=== PATIENT | female | born 1990 | race American Indian/Alaskan Native ===

== ENCOUNTER 2020-08-19 16:09 | Observation (INO) | payer SELFPAY ==
--- NOTE | 2020-08-19 16:14 | Event Note ---
ED Screening Note Date of service: 08/19/20 Time: 16:13 ED Screening Note: c/o sudden onset of chest tightness and SOB x 10 minutes denies hx of anxiety pt very anxious This initial assessment/diagnostic orders/clinical plan/treatment(s) is/are subject to change based on patients health status, clinical progression and re- assessment by fellow clinical providers in the ED. Further treatment and workup at subsequent clinical providers discretion. Patient/guardian urged not to elope from the ED as their condition may be serious if not clinically assessed and managed. Initial orders include: cxr ekg labs
[2020-08-19 16:40] LABS: Basophils # (Auto) 0.1 K/mm3 (0.0-0.1); Eosinophils % (Auto) 0.3 % (0.0-4.3); Hematocrit 35.3 % (30.3-42.9); Lymphocytes # (Auto) 1.6 K/mm3 (1.2-5.4); Lymphocytes % (Auto) 19.5 % (13.4-35.0); Mean Corpuscular HGB Conc 34 % (30-34); Mean Corpuscular Volume 97 fl (79-97); Monocytes # (Auto) 0.9 K/mm3 (0.0-0.8); Monocytes % (Auto) 10.6 % (0.0-7.3); Platelet Count 410 K/mm3 (140-440); Red Blood Count 3.66 M/mm3 (3.65-5.03); Red Cell Distribution Width 14.4 % (13.2-15.2)
[2020-08-19 17:01] LABS: Alanine Aminotransferase 26 units/L (7-56); Albumin 4.7 g/dL (3.9-5); Blood Urea Nitrogen 8 mg/dL (7-17); Calcium 10.1 mg/dL (8.4-10.2); Hemolysis Index 17
[2020-08-19 17:02] LABS: BUN/Creatinine Ratio 16
--- NOTE | 2020-08-19 17:38 | XRay Report ---
CHEST 2 VIEWS INDICATION / CLINICAL INFORMATION: shortness of breath. COMPARISON: None available. FINDINGS: SUPPORT DEVICES: None. HEART / MEDIASTINUM: No significant abnormality. LUNGS / PLEURA: No significant pulmonary or pleural abnormality. No pneumothorax. ADDITIONAL FINDINGS: No significant additional findings. IMPRESSION: No significant abnormality Signer Name: Miguel Moon MD FACR Signed: 08/19/2020 5:33 PM Workstation Name: [id number]
--- NOTE | 2020-08-20 06:28 | Emergency Department Report ---
ED Chest Pain HPI - General Chief Complaint: Chest Pain Stated Complaint: ALLERGIC REACTION Time Seen by Provider: 08/19/20 16:11 Source: patient Mode of arrival: Ambulatory Limitations: No Limitations - History of Present Illness Initial Comments: This is a 29-year-old lady whose chief complaint is chest pain. She was concerned when she had palpitations yesterday and shortness of breath. Her initial measured blood pressure was elevated but subsequent blood pressures were normal. She states that 2 days ago she experienced some difficulty in breathing. It sounded like she might have experienced hyperventilation. This was followed by a syncopal episode and trauma to her forehead. Sometime after she awoke soon after her fall she was experiencing a sensory change of her left arm. This was 2 days ago. It is persistent. She is somewhat vague about weakness stating to me that her arm is not weak but again she appears to be ambiguous about. She is experienced no difficulty walking speaking or with her vision. She states that yesterday she experienced chest pain which was nonpleuritic and central in nature. It did not radiate to the left arm. She did have some palpitations and some shortness of breath again. Patient states that she has never had symptoms like this before. She does not take control pill. MD Complaint: chest pain -: Gradual, days(s) Onset: during rest Pain Location: substernal Pain Radiation: none Quality: aching Consistency: now resolved Improves With: nothing Worsens With: nothing re: dyspnea, other (Palpitation). denies: nausea, vomting, diaphoresis Other Symptoms: denies: cough, fever, syncope Treatments Prior to Arrival: none Aspirin use within the Past 7 Days: (0) No - Related Data Allergies Allergy/AdvReac Type Severity Reaction Status Date / Time No Known Allergies Allergy Unverified 08/19/20 16:14 Heart Score - HEART Score History: Slightly suspicious EKG: Non-specific Age: < 45 Risk factors: No known risk factors Troponin: < normal limit HEART Score: 1 - Critical Actions Critical Actions: 0-3 pts:0.9-1.7%risk of adverse cardiac event.Candidate for discharge ED Review of Systems ROS: Stated complaint: ALLERGIC REACTION Other details as noted in HPI Constitutional: denies: chills, fever Eyes: denies: eye pain, eye discharge, vision change ENT: denies: ear pain, throat pain Respiratory: shortness of breath. denies: cough, wheezing Cardiovascular: denies: chest pain, palpitations Endocrine: no symptoms reported Gastrointestinal: denies: abdominal pain, nausea, diarrhea Genitourinary: denies: urgency, dysuria, discharge Musculoskeletal: denies: back pain, joint swelling, arthralgia Skin: denies: rash, lesions Neurological: as per HPI, numbness. denies: headache, weakness, paresthesias Psychiatric: denies: anxiety, depression Hematological/Lymphatic: denies: easy bleeding, easy bruising ED Past Medical Hx - Past Medical History Previous Medical History?: No - Surgical History Past Surgical History?: No - Social History Smoking Status: Never Smoker ED Physical Exam - General Limitations: No Limitations General appearance: alert, in no apparent distress - Head Head exam: Present: normocephalic, other (Forehead abrasion) - Eye Eye exam: Present: normal appearance. Absent: scleral icterus - ENT ENT exam: Present: mucous membranes moist - Neck Neck exam: Present: normal inspection - Respiratory Respiratory exam: Present: normal lung sounds bilaterally. Absent: respiratory distress - Cardiovascular Cardiovascular Exam: Present: regular rate, normal rhythm. Absent: systolic murmur, diastolic murmur, rubs, gallop - GI/Abdominal GI/Abdominal exam: Present: soft, normal bowel sounds. Absent: distended, tenderness, guarding, rebound - Extremities Exam Extremities exam: Present: normal inspection - Back Exam Back exam: Present: normal inspection - Neurological Exam Neurological exam: Present: alert, oriented X3, CN II-XII intact, motor sensory deficit (Patient states that she has a difference in fine touch testing left arm compared with right. Her NIH stroke score is 1.) - Psychiatric Psychiatric exam: Present: normal affect, normal mood - Skin Skin exam: Present: warm, dry, intact, normal color. Absent: rash ED Course Vital Signs 08/19/20 08/20/20 08/20/20 16:13 05:59 06:01 Temperature 98.4 F Pulse Rate 122 H 84 89 Respiratory 18 16 16 Rate Blood Pressure 173/113 Blood Pressure 143/99 [Right] O2 Sat by Pulse 100 100 Oximetry 08/20/20 08/20/20 09:22 11:32 Temperature Pulse Rate 88 95 H Respiratory 18 17 Rate Blood Pressure Blood Pressure 117/81 126/82 [Right] O2 Sat by Pulse 100 100 Oximetry - Reevaluation(s) Reevaluation #1: CT the patient's head was negative. Her EKG showed nonspecific changes. Her persistent numbness was of concern as well as her syncopal episode. I have added a coagulation profile and obtain serial troponin. The patient is already admitted to the hospitalist service for further care and evaluation. 08/20/20 12:02 ED Medical Decision Making - Lab Data Result diagrams: 08/19/20 16:25 08/19/20 16:25 Laboratory Results - last 24 hr 08/19/20 08/19/20 08/19/20 16:25 16:25 16:25 WBC 8.0 RBC 3.66 Hgb 12.0 Hct 35.3 MCV 97 MCH 33 H MCHC 34 RDW 14.4 Plt Count 410 Lymph % (Auto) 19.5 [place] % (Auto) 10.6 H Eos % (Auto) 0.3 Baso % (Auto) 1.0 Lymph # (Auto) 1.6 [place] # (Auto) 0.9 H Eos # (Auto) 0.0 Baso # (Auto) 0.1 Seg Neutrophils % 68.6 Seg Neutrophils # 5.5 Sodium 134 L Potassium 3.8 Chloride 98.6 Carbon Dioxide 20 L Anion Gap 19 BUN 8 Creatinine 0.5 L Estimated GFR > 60 BUN/Creatinine Ratio 16 Glucose 144 H Calcium 10.1 Total Bilirubin 0.90 AST 41 H ALT 26 Alkaline Phosphatase 47 Troponin T < 0.010 Total Protein 7.9 Albumin 4.7 Albumin/Globulin Ratio 1.5 HCG, Qual Negative - EKG Data -: EKG Interpreted by Al EKG shows normal: sinus rhythm, axis, intervals, QRS complexes Rate: normal - EKG Data Interpretation: nonspecific ST-T wave adriana - Radiology Data Radiology results: report reviewed, image reviewed (Chest x-ray no acute process, CT head no acute process no significant findings) Critical care attestation.: If time is entered above; I have spent that time in minutes in the direct care of this critically ill patient, excluding procedure time. ED Disposition Clinical Impression: Left arm weakness, Palpitations, Left arm numbness Chest pain Qualifiers: Chest pain type: unspecified Qualified Code(s): R07.9 - Chest pain, unspecified Syncope Qualifiers: Syncope type: unspecified Qualified Code(s): R55 - Syncope and collapse Disposition: DC-09 OP ADMIT IP TO THIS HOSP Is pt being admited?: Yes Does the pt Need Aspirin: Yes Condition: Stable Instructions: Chest Pain (ED), Syncope (ED) Referrals: PRIMARY CARE, [Primary Care Provider] - 3-5 Days Time of Disposition: 12:02
--- NOTE | 2020-08-20 09:01 | Cat Scan Report ---
CT BRAIN: 08/20/2020 INDICATION / CLINICAL INFORMATION: syncope l arm numbness. COMPARISON: None available. FINDINGS: BRAIN/INTRACRANIAL STRUCTURES: Unenhanced CT images of the brain demonstrate no evidence of acute int racranial abnormality. Ventricles and sulci are within normal limits of size and shape for a patient of this age. There is no evidence of ischemic injury, hemorrhage, or mass. There are no abnormal extra-axial fluid collections. Incidental note is made of some soft tissue densities within the external auditory canals bilaterally , right greater than left, most likely cerumen. EXTRACRANIAL STRUCTURES: Unremarkable. IMPRESSION: Negative unenhanced CT of the brain. All CT scans at this location are performed using dose reduction to ALARA by means of automated expos ure control. Signer Name: Anjum Jackson MD Signed: 08/20/2020 8:57 AM Workstation Name: [id number]
[2020-08-20] MEDS ORDERED: ASPIRIN 325 MG TAB PO ONE (12:03)
[2020-08-20 13:11] LABS: INR 0.92 (0.87-1.13)
[2020-08-20 13:12] LABS: Partial Thromboplastin Time 27.6 Sec. (24.2-36.6)
[2020-08-20 13:21] VITALS: BP 121/75
[2020-08-20] MEDS ORDERED: HYDROmorphone 1 MG/1 ML INJ IV PRN (20:07)
[2020-08-20] MEDS ORDERED: ONDANSETRON 4 MG/2 ML INJ IV PRN (20:07)
[2020-08-20] MEDS ORDERED: METOCLOPRAMIDE 10 MG/2 ML INJ IV PRN (20:07)
[2020-08-20] MEDS ORDERED: oxyCODONE /ACETAMINOPHEN 5-325MG TAB PO PRN (20:07)
[2020-08-20] MEDS ORDERED: ACETAMINOPHEN 325 MG TAB PO PRN (20:07)
[2020-08-20] MEDS ORDERED: diphenhydrAMINE 50 MG/ML VIAL IV PRN (20:09)
[2020-08-20] MEDS ORDERED: FAMOTIDINE 20 MG TAB PO SCH (22:00)
--- NOTE | 2020-08-22 11:08 | Event Note ---
Date: 08/22/20 I have admitted the patient on 08/20/2020 for chest pain and nonspecific weakness and numbness of the left arm which I could not identify on my physical examination. H&P was done, order was placed for some reason her account number was changed and does not show on this note. Nevertheless patient left AMA on the same day at night.
== END 2020-08-20 21:30 | disposition left against medical advice (07) ==
LOC: ED 16:09 → 4A 08-20 12:04
PROVIDERS: ADMIT Internal Medicine; ATTEND Internal Medicine
DX: R07.89 Other chest pain (principal); R55 Syncope and collapse; M62.81 Muscle weakness (generalized); R00.2 Palpitations; R20.0 Anesthesia of skin
CPT/HCPCS: 36415; 70450; 71046; 80053; 84484; 84703; 85025; 85379; 85610; 85730; 93005; 99285; G0378

== ENCOUNTER 2020-08-20 03:24 | Emergency (ER) | payer SELFPAY ==
[2020-08-20 03:42] VITALS: BP 150/102
[2020-08-20] MEDS ORDERED: ACETAMINOPHEN 325 MG TAB PO PRN ×2 (09:29→11:33)
[2020-08-20] MEDS ORDERED: ONDANSETRON 4 MG/2 ML INJ IV PRN ×2 (09:29→11:33)
--- NOTE | 2020-08-20 10:44 | Consultation ---
History of Present Illness Consult date: 08/20/20 Requesting physician: MEGAN JEFFREY Consult reason: chest pain, other (palpitations) History of present illness: The pt is a 29 YO female with no known significant past medical history. She is previously unknown to our practice. She presented with c/o intermittent chest pain and palpitations for 1 day prior to arrival and some associated left arm weakness for several hours prior to arrival. She describes her chest pain as a "pounding" and "pinching" left-sided pain which radiates into the left side of her neck. The pain is usually preceded by palpitations and a feeling of anxiety. Pt denies any SOB, n/v, diaphoresis, dizziness or syncope. She denies any known prior cardiac history or cardiac w/u. Past History Past Medical History: No medical history Past Surgical History: No surgical history Social history: denies: smoking Medications and Allergies Allergies Allergy/AdvReac Type Severity Reaction Status Date / Time No Known Allergies Allergy Unverified 08/19/20 16:14 Review of Systems Constitutional: no weight loss, no weight gain, no fever, no chills, no sweats Ears, nose, mouth and throat: no ear pain, no nose pain, no sinus pressure, no sinus pain Cardiovascular: chest pain, palpitations, no orthopnea, no edema, no syncope, no lightheadedness, no shortness of breath, no dyspnea on exertion, no high blood pressure, no leg edema, no decreased exercise tolerance Respiratory: no cough, no shortness of breath, no dyspnea on exertion, no congestion, no wheezing, no pain on inspiration Gastrointestinal: no abdominal pain, no nausea, no vomiting, no diarrhea, no constipation, no change in bowel habits Genitourinary Female: no pelvic pain, no flank pain, no dysuria, no urinary frequency, no urgency Musculoskeletal: muscle weakness (left arm), no neck stiffness, no neck pain, no shooting arm pain, no arm numbness/tingling, no low back pain Integumentary: no rash, no pruritis, no redness, no sores, no wounds Neurological: weakness (left arm), no head injury, no paralysis, no numbness, no tingling, no seizures, no syncope Endocrine: no cold intolerance, no heat intolerance Hematologic/Lymphatic: no easy bruising, no easy bleeding Allergic/Immunologic: no urticaria Physical Examination Vital Signs Temp Pulse Resp BP Pulse Ox 97.7 F 80 18 150/102 100 08/20/20 03:30 08/20/20 03:30 08/20/20 03:30 08/20/20 03:30 08/20/20 03:30 General appearance: no acute distress HEENT: Positive: PERRL, Normocephaly, Mucus Membranes Moist Neck: Positive: neck supple, trachea midline Cardiac: Positive: Reg Rate and Rhythm, S1/S2 Lungs: Positive: Decreased Breath Sounds Neuro: Positive: Grossly Intact Abdomen: Negative: Tender Skin: Negative: Rash Musculoskeletal: No Pain Extremities: Absent: edema Results - Imaging and Cardiology Echo: pending EKG: report reviewed, image reviewed EKG interpretations - Telemetry EKG Rhythm: Sinus Rhythm - EKG Sinus rhythms and dysrhythmias: sinus rhythm Assessment and Plan Chest pain appears atypical. ECG with NSR, no acute findings. No arrhythmias noted on telemetry. Obtain Elva and echo. Cont to monitor on telemetry. Pt with current HEART score of 0 pending Elva are negative. No indication for inpatient ischemic evaluation at this time - can consider as OP if indicated. Further w/u of left arm weakness per primary. Will follow. The patient has been seen in conjunction with Dr. Mazariegos who agrees with the assessment and plan of care. - Patient Problems (1) Left arm weakness Status: Acute (2) Chest pain Status: Acute (3) Palpitations Status: Acute
[2020-08-20 11:08] LABS: Hematocrit 32.3 % (30.3-42.9); Hemoglobin 11.7 gm/dl (10.1-14.3); Mean Corpuscular HGB Conc 36 % (30-34); Mean Corpuscular Volume 95 fl (79-97); Platelet Count 366 K/mm3 (140-440); Red Blood Count 3.39 M/mm3 (3.65-5.03)
[2020-08-20 11:32] LABS: Blood Urea Nitrogen 5 mg/dL (7-17); Calcium 9.2 mg/dL (8.4-10.2); Hemolysis Index 1
[2020-08-20 11:35] LABS: BUN/Creatinine Ratio 10
--- NOTE | 2020-08-20 11:43 | History and Physical Report ---
History of Present Illness Date of examination: 08/20/20 Chief complaint: Chest pain, left-sided numbness History of present illness: 29-year-old -[place] female with no significant past medical history presented to the emergency department with complaints of chest pain, numbness and weakness of the left upper extremity. Patient states she had similar symptoms a month ago and resolved by itself. Patient states she had red bull yesterday and the symptoms started after that. Patient's weakness and numbness is getting better now. Chest pain also resolved. She states the chest pain is feeling of tightness around the left chest radiating to the left side of the neck, 5 out of 10 in intensity, intermittent, no alleviating or aggravating factors identified. In the emergency department labs were unremarkable, vital signs were stable, CT head and chest x-ray was done and unremarkable. Cardiology was consulted and recommend to do troponin which was negative and will check echo. Put a consult for neurology. Patient will be admitted to the floor for observation. REVIEW OF SYSTEMS: GENERAL: no weight change, no fatigue, no fever HEAD: no head ache EYES: no blurry vision, no acute visual loss EARS: no hearing loss, no discharge, no earache NOSE: no stuffiness, no sneezing, no discharge MOUTH, THROAT AND NECK: no bleeding gums, no sore throat, no swollen neck CARDIAC: no palpitations, no dyspnea on exertion, no orthopnea, no PND, no edema, no chest pain RESPIRATORY: no shortness of breath, no wheeze, no cough, no sputum, no hemoptysis, no asthma GI: no decreased appetite, no nausea, no vomiting, no dysphagia, no diarrhea, no constipation, no abdominal pain URINARY: No urgency, hematuria, dysuria or frequency. MUSCULOSKELETAL: no muscle weakness, no pain, no joint stiffness NEUROLOGIC: no loss of sensation/numbness, no tingling, no tremors, no weakness/paralysis HEMATOLOGIC: no anemia, no easy bruising SKIN: no rashes ENDOCRINE: no heat/cold intolerance, no polyuria, no polydipsia, no thyroid problems, no diabetes PSYCHIATRIC: no anxiety, no depression, no suicidal ideations Past History Past Medical History: No medical history Past Surgical History: No surgical history Social history: alcohol abuse (Occasional ), full code. denies: smoking, prescription drug abuse, IV drug use Family history: other (Mother of heart attack at the age of 52) Medications and Allergies Allergies Allergy/AdvReac Type Severity Reaction Status Date / Time No Known Allergies Allergy Unverified 08/19/20 16:14 Active Meds: Active Medications Acetaminophen (Tylenol) 650 mg PO Q4H PRN PRN Reason: Pain MILD(1-3)/Fever >100.5/GAR Docusate Sodium (Colace) 100 mg PO BID ED Ondansetron HCl (Zofran) 4 mg IV Q8H PRN PRN Reason: Nausea And Vomiting Sodium Chloride (Sodium Chloride Flush Syringe 10 Ml) 10 ml IV BID ED Sodium Chloride (Sodium Chloride Flush Syringe 10 Ml) 10 ml IV PRN PRN PRN Reason: LINE FLUSH Exam - Physical Exam Narrative exam: Not in cardiopulmonary distress. The patient appeared well nourished and normally developed. Vital signs as documented. Head exam is unremarkable. No scleral icterus . Neck is without jugular venous distension, thyromegaly, or carotid bruits. Lungs are clear to auscultation. Cardiac exam reveals regular rate and Rhythm. Abdominal exam reveals normal bowel sounds, nontender, no organomegaly. Extremities are nonedematous and both femoral and pedal pulses are normal. NURSERY ATTENDANT: Alert and oriented 3. No focal weakness. - Constitutional Vitals: Temp Pulse Resp BP Pulse Ox 97.7 F 80 18 150/102 100 08/20/20 03:30 08/20/20 03:30 08/20/20 03:30 08/20/20 03:30 08/20/20 03:30 HEART Score - HEART Score Troponin: Troponin T < 0.010 ng/mL (0.00-0.029) 08/20/20 10:54 Results - Labs CBC & Chem 7: 08/20/20 10:54 08/20/20 10:54 Labs: Laboratory Last Values WBC 5.9 K/mm3 (4.5-11.0) 08/20/20 10:54 RBC 3.39 M/mm3 (3.65-5.03) L 08/20/20 10:54 Hgb 11.7 gm/dl (10.1-14.3) 08/20/20 10:54 Hct 32.3 % (30.3-42.9) 08/20/20 10:54 MCV 95 fl (79-97) 08/20/20 10:54 MCH 35 pg (28-32) H 08/20/20 10:54 MCHC 36 % (30-34) H 08/20/20 10:54 RDW 14.0 % (13.2-15.2) 08/20/20 10:54 Plt Count 366 K/mm3 (140-440) 08/20/20 10:54 Sodium 133 mmol/L (137-145) L 08/20/20 10:54 Potassium 3.5 mmol/L (3.6-5.0) L 08/20/20 10:54 Chloride 97.7 mmol/L (98-107) L 08/20/20 10:54 Carbon Dioxide 21 mmol/L (22-30) L 08/20/20 10:54 Anion Gap 18 mmol/L 08/20/20 10:54 BUN 5 mg/dL (7-17) L 08/20/20 10:54 Creatinine 0.5 mg/dL (0.6-1.2) L 08/20/20 10:54 Estimated GFR > 60 ml/min 08/20/20 10:54 BUN/Creatinine Ratio 10 % 08/20/20 10:54 Glucose 111 mg/dL (65-100) H 08/20/20 10:54 Calcium 9.2 mg/dL (8.4-10.2) 08/20/20 10:54 Troponin T < 0.010 ng/mL (0.00-0.029) 08/20/20 10:54 Assessment and Plan Assessment and plan: Chest pain, palpitation -EKG normal sinus rhythm, troponin was negative -Cardiology consulted and will do echo -No arrhythmia identified on EKG, telemetry monitoring Left-sided numbness and weakness/numbness -CT head is negative, neurology is consulted -Numbness and weakness resolved DVT prophylaxis -Lovenox CODE STATUS -Full code Management plan was discussed with the patient and was in agreement with the plan of care. Advance Directives: Yes VTE prophylaxis?: Chemical Plan of care discussed with patient/family: Yes
--- NOTE | 2020-08-20 12:11 | Consultation ---
History of Present Illness Consult date: 08/20/20 Reason for Consult: Left arm weakness, dizziness Chief complaint: Chest pain History of present illness: 29 yo female with no medical history except she fainted when in an argument with her 2 days ago and with a similar presentation as this time, that occurred 1 month ago. She presents with chest pain and palpitations and a sense of her throat closing off and when she does have the chest pain, she feels "we akness" of the left upper chest/clavicular region. She denies any other focal neurologic findings including no headache, nausea, emesis, vertigo, arm/leg weakness/numbness or loss of cosciousness or any changes in her primary senses. Past History Past Medical History: No medical history Past Surgical History: No surgical history Social history: alcohol abuse (Occasional ), full code. denies: smoking, pres cription drug abuse, IV drug use Family history: other (Mother of heart attack at the age of 52) Medications and Allergies Allergies Allergy/AdvReac Type Severity Reaction Status Date / Time No Known Allergies Allergy Unverified 08/19/20 16:14 Active Meds: Active Medications Acetaminophen (Tylenol) 650 mg PO Q4H PRN PRN Reason: Pain MILD(1-3)/Fever >100.5/GAR Docusate Sodium (Colace) 100 mg PO BID ED Enoxaparin Sodium (Enoxaparin) 40 mg SUB-Q DAILY ED; Protocol Ondansetron HCl (Zofran) 4 mg IV Q8H PRN PRN Reason: Nausea And Vomiting Sodium Chloride (Sodium Chloride Flush Syringe 10 Ml) 10 ml IV BID ED Sodium Chloride (Sodium Chloride Flush Syringe 10 Ml) 10 ml IV PRN PRN PRN Reason: LINE FLUSH Review of Systems All systems: negative (except as per HPI;) Physical Examination - Vital Signs Vital Signs: Vital Signs Temp Pulse Resp BP Pulse Ox 97.7 F 80 18 150/102 100 08/20/20 03:30 08/20/20 03:30 08/20/20 03:30 08/20/20 03:30 08/20/20 03:30 - Additional Exam Additional Exam: Gen: nad, well-nourished; Head: normocephalic; Eyes: no gaze deviation; no ptosis; ENT: normal vocalization; CVS: warm and well-perfused; Pulm: no respiratory distress;; GI: non-distended; Ext: no cyanosis or edema at distal extremities; Skin: no acute rash or hives at distal extremities; Heme: no pathologic bruising or ecchymosis at distal extremities; Neuro: alert, oriented to name, age, month, year, no dysarthria, no aphasia, CN 2 - pupils intact, visual jackson grossly intact, CN 3, 4, 6 - EOMI, CN 5 - facial sensation symmetric decreased on left to light touch, CN 7 - facial movement symmetric, CN 8 - hearing grossly intact, CN 9, 10 - uvula midline, CN 11 - shrug symmetric, CN 12 - tongue midline; Motor - at least 5-/5 in all exts; Sensory - light touch symmetric at arms and decreased at right foot, Cerebellar - deferred, Gait - deferred secondary to fall risk; Results - Laboratory Findings CBC and BMP: 08/20/20 10:54 08/20/20 10:54 Abnormal Lab Findings: Abnormal Labs 08/20/20 08/20/20 10:54 10:54 RBC 3.39 L MCH 35 H MCHC 36 H Sodium 133 L Potassium 3.5 L Chloride 97.7 L Carbon Dioxide 21 L BUN 5 L Creatinine 0.5 L Glucose 111 H Assessment and Plan 29 yo female p/w a probable anxiety attack. 1. Anxiety attack - diagnosis of exclusion; check MRI Brain w/ wo contrast to confirm no lesions. Bob Weinberg MD Neurology
[2020-08-20] MEDS ORDERED: DOCUSATE SODIUM 100 MG CAP PO SCH (22:00)
[2020-08-21] MEDS ORDERED: ENOXAPARIN 40 MG/0.4 ML INJ SUB-Q SCH (10:00)
== END 2020-08-20 05:23 ==
LOC: ED 03:24
DX: R00.2 Palpitations (principal); Z53.21 Procedure and treatment not carried out due to patient leaving prior to being seen by health care provider
CPT/HCPCS: 36415; 80048; 82306; 82607; 82747; 84443; 84484; 85027; 93005